=== PATIENT | female | born 1980 | race African-American/Black ===

== ENCOUNTER 2017-12-17 13:42 | Emergency (ER) | payer MEDICAID ==
[~2017-12-17] VITALS: Ht 165.1 cm; Wt 72.5 kg
[2017-12-17] MEDS ORDERED: ASPIRIN 81 MG TABLET CHEW PO ONE (14:30)
[2017-12-17 14:38] LABS: ALBUMIN 3.9 g/dL (3.4-5.0); ANION GAP 8 mmol/L (5-15); CALCIUM 8.8 mg/dL (8.5-10.1); CHLORIDE 108 mmol/L (98-107); CREATININE 0.68 mg/dL (0.55-1.02)
[2017-12-17 14:41] LABS: TROPONIN I < 0.015 ng/mL (0.000-0.045)
[2017-12-17 14:56] LABS: BASOPHILS # (AUTO) 0.02 x10^3/uL (0-0.1); BASOPHILS % (AUTO) 0 % (0-1); EOSINOPHILS # (AUTO) 0.14 x10^3/uL (0-0.4); EOSINOPHILS % (AUTO) 2 % (1-7); LYMPHOCYTES # (AUTO) 1.74 x10^3/uL (1-3.4); LYMPHOCYTES % (AUTO) 27 % (22-44); MD NO; MEAN CORPUSCULAR HEMOGLOBIN 31.5 pg (27.0-34.8); MEAN CORPUSCULAR HGB CONC 32.9 g/dL (32.4-35.8); MEAN CORPUSCULAR VOLUME 95.6 fL (80-100); MEAN PLATELET VOLUME 9.4 fL (7.4-10.4); MONOCYTES # (AUTO) 0.31 x10^3/uL (0.2-0.8); MONOCYTES % (AUTO) 5 % (2-9); NEUTROPHILS # (AUTO) 4.24 x10^3/uL (1.8-6.8); NEUTROPHILS % (AUTO) 66 % (42-75); PLATELET COUNT 317 x10^3/uL (130-400); RED BLOOD COUNT 4.34 x10^6/uL (3.82-5.3); RED CELL DISTRIBUTION WIDTH 13.8 % (9.6-15.2)
[2017-12-17] MEDS ORDERED: KETOROLAC 30 MG/1 ML ONE (15:07)
[2017-12-17] MEDS ORDERED: ASPIRIN 81 MG TABLET CHEW ONE (15:08)
[2017-12-17] MEDS ORDERED: ONDANSETRON 2MG/ML, 2ML ONE (15:42)
[2017-12-17] MEDS ORDERED: MORPHINE SULFATE 4 MG/ML, 1ML ONE (15:42)
[2017-12-17] MEDS ORDERED: MORPHINE SULFATE 4 MG/ML, 1ML IVPush ONE (16:00)
[2017-12-17] MEDS ORDERED: KETOROLAC 60 MG/2 ML IM ONE (16:00)
[2017-12-17] MEDS ORDERED: ONDANSETRON 2MG/ML, 2ML IVPush ONE (16:30)
[2017-12-17] MEDS ORDERED: OMNIPAQUE 350 MG/ML, 100ML BOTTLE ONE (16:34)
[2017-12-17] MEDS ORDERED: SODIUM CHLORIDE 0.9% 1,000ML IVBOLUS ONE (17:00)
[2017-12-17] MEDS ORDERED: SODIUM CHLORIDE FLUSH 10ML SYR IVF ONE (17:00)
[2017-12-17 17:14] VITALS: BP 102/69
== END 2017-12-17 17:18 | disposition home or self-care (01) ==
LOC: ED 15:10
DX: M94.0 Chondrocostal junction syndrome [Tietze] (principal); R07.2 Precordial pain
CPT/HCPCS: 36415; 71046; 71275; 80048; 82040; 84484; 85025; 85379; 93005; 96361; 96372; 96374; 96375; 99285; J1885; J2405; J7030; Q9967

== ENCOUNTER 2018-12-11 11:44 | Emergency (ER) | payer MEDICAID ==
[~2018-12-11] VITALS: Ht 165.1 cm; Wt 71.6 kg
--- NOTE | 2018-12-11 12:11 | NUR ---
First contact with pt. Pt tearful resting on the gurney. EDPA at bedside. Pt states, "For four days I have been having abdominal pain right here (RLQ). I thought it was from drinking orange juice. Intercoarse is painful. No blood is in my urine. I have had vomitting. When I was I had diabetes and was on insulin, I was suppose to go back and get checked but I never went back and got checked." NADN. Pt's spouse at bedside. Pt states, "I have had a . I have some ovarian cyst removed. I had cervical cancer and had a LEAP done." All safety measures in place. Pt connected to NIBP and continous pulse ox.
[2018-12-11] MEDS ORDERED: ONDANSETRON 2MG/ML, 2ML ONE (12:21)
[2018-12-11] MEDS ORDERED: MORPHINE SULFATE 4 MG/ML, 1ML ONE ×2 (12:21→13:39)
[2018-12-11] MEDS ORDERED: ONDANSETRON 2MG/ML, 2ML IVPush ONE (12:30)
[2018-12-11] MEDS ORDERED: SODIUM CHLORIDE FLUSH 10ML SYR IVF ONE (12:30)
[2018-12-11] MEDS: MORPHINE SULFATE 4 MG/ML, 1ML IVPush PRN ×2 (12:38→13:40)
[2018-12-11 12:48] LABS: BASOPHILS # (AUTO) 0.02 x10^3/uL (0-0.1); BASOPHILS % (AUTO) 0 % (0-1); EOSINOPHILS # (AUTO) 0.09 x10^3/uL (0-0.4); EOSINOPHILS % (AUTO) 1 % (1-7); LYMPHOCYTES # (AUTO) 1.61 x10^3/uL (1-3.4); LYMPHOCYTES % (AUTO) 18 % (22-44); MD NO; MEAN CORPUSCULAR HEMOGLOBIN 31.7 pg (27.0-34.8); MEAN CORPUSCULAR HGB CONC 33.1 g/dL (32.4-35.8); MEAN CORPUSCULAR VOLUME 95.8 fL (80-100); MEAN PLATELET VOLUME 9.2 fL (7.4-10.4); MONOCYTES # (AUTO) 0.45 x10^3/uL (0.2-0.8); MONOCYTES % (AUTO) 5 % (2-9); NEUTROPHILS # (AUTO) 6.73 x10^3/uL (1.8-6.8); NEUTROPHILS % (AUTO) 76 % (42-75); PLATELET COUNT 262 x10^3/uL (130-400); RED BLOOD COUNT 4.28 x10^6/uL (3.82-5.3); RED CELL DISTRIBUTION WIDTH 13.7 % (9.6-15.2)
[2018-12-11 12:57] LABS: ALANINE AMINOTRANSFERASE 41 U/L (12-78); ALBUMIN 3.8 g/dL (3.4-5.0); ANION GAP 7 mmol/L (5-15); CALCIUM 8.8 mg/dL (8.5-10.1); CHLORIDE 111 mmol/L (98-107); CREATININE 0.77 mg/dL (0.55-1.02)
[2018-12-11 13:01] LABS: ALKALINE PHOSPHATASE 64 U/L (45-117); BILIRUBIN,TOTAL 0.5 mg/dL (0.2-1.0); TOTAL PROTEIN 8.3 g/dL (6.4-8.2)
[2018-12-11] MEDS ORDERED: OMNIPAQUE 350 MG/ML, 100ML BOTTLE ONE (13:27)
--- NOTE | 2018-12-11 13:31 | NUR ---
LUNCH BREAK NOTE: PT IN RAD. UA COLLECTED AND SENT TO THE LAB.
[2018-12-11 13:32] LABS: MICROSCOPIC NOT IND
[2018-12-11 13:33] LABS: CULTURE INDICATED? NO
[2018-12-11 14:01] VITALS: BP 109/78
--- NOTE | 2018-12-11 14:04 | NUR ---
Pt states, "The first dose of pain meds took it from a 8 to a 4. It lasted about ten minutes. The second dose of pain meds has taken me from an 8 to a 5 now. When I went to the bathroom I had a maura cramping kind of pain in my lower abdomen."
== END 2018-12-11 15:10 | disposition home or self-care (01) ==
LOC: ED 14:50
DX: N83.11 Corpus luteum cyst of right ovary (principal); Z85.41 Personal history of malignant neoplasm of cervix uteri
CPT/HCPCS: 36415; 74177; 80053; 81003; 83690; 84703; 85025; 96374; 96375; 96376; 99284; J2405; Q9967

== ENCOUNTER 2020-01-29 16:00 | Emergency (ER) | payer MEDICAID ==
[~2020-01-29] VITALS: Ht 165.1 cm; Wt 71.8 kg
[2020-01-29 16:02] VITALS: BP 122/77
== END 2020-01-29 17:57 | disposition home or self-care (01) ==
LOC: ED 17:50
DX: M79.661 Pain in right lower leg (principal); F17.200 Nicotine dependence, unspecified, uncomplicated; Z98.51 Tubal ligation status
CPT/HCPCS: 82962; 99284